=== PATIENT | male | born 2000 | race Two or more races ===

== ENCOUNTER 2024-08-02 08:24 | Emergency (ER) | payer OTHER ==
[~2024-08-02] VITALS: Ht 170.2 cm; Wt 59.6 kg
[2024-08-02 08:33] VITALS: TEMP 97.8
[2024-08-02 09:00] LABS: BILIRUBIN,URINE SMALL (Neg); CLARITY,URINE CLOUDY (Clear); COLOR,URINE BROWN (Yellow); GLUCOSE, URINE NEGATIVE (Neg); KETONES,URINE NEGATIVE (Neg); LEUKOCYTE ESTERASE ,URINE NEGATIVE (Neg); OCCULT BLOOD,URINE LARGE (Neg); PROTEIN,URINE 100 mg/dl (Neg); UROBILINOGEN,URINE 0.2 E.U/dL (0.2-1.0)
[2024-08-02 09:03] LABS: UA COLLECTION TYPE CLN CATCH MIDSTREAM
[2024-08-02 09:04] LABS: BASOPHILS % (AUTO) 0.4 % (0-1); EOSINOPHILS % (AUTO) 0.2 % (0-6); HEMATOCRIT 44.7 % (42.0-52.0); HEMOGLOBIN 15.4 g/dl (14.0-17.9); LYMPHOCYTES # (AUTO) 1.3 X10'3 (1.1-4.8); LYMPHOCYTES % (AUTO) 12.1 % (21-51); MEAN CORPUSCULAR HEMOGLOBIN 29.7 PG (27.0-31.0); MEAN CORPUSCULAR HGB CONC 34.5 g/dL (33.0-36.5); MEAN CORPUSCULAR VOLUME 86.2 FL (78-98); MONOCYTES # (AUTO) 0.3 X10'3 (0-0.9); MONOCYTES % (AUTO) 3.3 % (2-12); NEUTROPHILS # (AUTO) 8.8 X10'3 (1.8-7.7); PLATELET COUNT 274 X10'3 (140-440); RED BLOOD COUNT 5.19 X10'6 (4.70-6.10); RED CELL DISTRIBUTION WIDTH 13.8 % (11.5-14.5); WHITE BLOOD COUNT 10.5 X10'3 (4.5-11.0)
[2024-08-02 09:05] LABS: NITRITES, URINE POSITIVE (Neg)
[2024-08-02 09:09] LABS: BACTERIA,URINE 1+ /HPF (Neg); MUCUS STRANDS FEW /LPF (Neg); RBC,URINE TNTC /HPF (0-2); SQUAMOUS EPITHELIAL CELL,UR NONE SEEN /LPF (FEW); WBC,URINE 0-4 /HPF (0-4)
[2024-08-02 09:19] LABS: ALANINE AMINOTRANSFERASE 39 U/L (12-78); ALBUMIN 4.3 G/DL (3.4-5.0); ALBUMIN/GLOBULIN RATIO 1.2 (1.1-1.5); ALKALINE PHOSPHATASE 77 IU/L (46-116); ANION GAP 10 (8-16); ASPARTATE AMINO TRANSFERASE 18 U/L (10-37); BILIRUBIN,TOTAL 0.6 MG/DL (0.1-1.0); BLOOD UREA NITROGEN 16 MG/DL (7-18); BUN/CREATININE RATIO 12.9 (10.0-20.0); CALCIUM 9.4 MG/DL (8.5-10.1); CHLORIDE 104 MMOL/L (99-107); CREATININE 1.24 MG/DL (0.60-1.10); GLUCOSE 154 MG/DL (70-104); LIPASE 36 U/L (16-77); POTASSIUM 3.7 MMOL/L (3.5-5.1); SODIUM 140 MMOL/L (135-145); TOTAL CARBON DIOXIDE 26.1 MMOL/L (24-32); TOTAL PROTEIN 7.8 G/DL (6.4-8.2); eCRCL 77 ML/MIN; eGFR 72 ML/MIN
[2024-08-02] MEDS: normal saline 1000ml 1,000 ML IV ONE (09:40)
[2024-08-02] MEDS: ondansetron/PF 4mg/2ml inj IV ONE (09:40)
[2024-08-02] MEDS: HYDROmorphone 1 mg/ml syringe IV ONE ×2 (09:42→10:48)
[2024-08-02] MEDS: phenazopyridine 100mg tablet PO ONE (10:45)
[2024-08-02] MEDS ORDERED: ONDA-245 PO (10:49)
[2024-08-02] MEDS ORDERED: FLO0.4C PO (10:49)
[2024-08-02] MEDS ORDERED: PHEN-716 PO (10:49)
[2024-08-02] MEDS ORDERED: CEPH-585 PO (10:49)
[2024-08-02] MEDS: metoclopramide 5 mg/ml inj IV ONE (10:54)
[2024-08-02] MEDS ORDERED: HYDR-3965 PO (11:07)
[2024-08-02 11:30] VITALS: BP 109/74; PULSE 78; RESP 12; O2SAT 99
== END 2024-08-02 11:24 | disposition home or self-care (01) ==
LOC: ER 08:25
DX: N20.1 Calculus of ureter (principal); Z88.6 Allergy status to analgesic agent; Z79.899 Other long term (current) drug therapy; Z87.442 Personal history of urinary calculi
CPT/HCPCS: 36415; 74176; 80053; 81001; 83690; 85025; 87088; 96361; 96374; 96375; 96376; 99285; J1171; J2405; J2765; J7030